=== PATIENT | male | born 1955 | race Caucasian/White ===

== ENCOUNTER 2017-02-17 06:17 | Inpatient (IN) | payer OTHER ==
[2017-01-19 10:52] VITALS: BMI 37.0
--- NOTE | 2017-01-19 11:23 | PAT Medication Instructions ---
Service Date Jan 19, 2017. Current Home Medication List Acetaminophen (Tylenol), 1,000 MG PO PRN Hydrocodone/Acetaminophen 7.5MG/325MG (Ripon 7.5MG/325MG), 1-2 TAB PO HS PRN for Pain Multivitamin (Multivitamin), 1 TAB PO QAM Warfarin Sod (Jantoven), 10 MG PO 5XWEEK Warfarin Sod (Jantoven), 11 MG PO MON/FRI [Potassium], 1 TAB PO Q2D Medication Instructions For Your Scheduled Surgery - Check with surgeon/Dr. Pryor for instructions: Warfarin Sod (Jantoven), 10 MG PO 5XWEEK Warfarin Sod (Jantoven), 11 MG PO MON/FRI - Hold the following medications the morning of surgery: Multivitamin (Multivitamin), 1 TAB PO QAM [Potassium], 1 TAB PO Q2D - Take the following medications the morning of surgery with a sip of water: Acetaminophen (Tylenol), 1,000 MG PO PRN (if needed) Hydrocodone/Acetaminophen 7.5MG/325MG (Ripon 7.5MG/325MG), 1-2 TAB PO HS PRN for Pain (okay to take up to 4 hours prior to surgery if needed) - Take the following medications as scheduled the night before surgery: Acetaminophen (Tylenol), 1,000 MG PO PRN (if needed) Hydrocodone/Acetaminophen 7.5MG/325MG (Ripon 7.5MG/325MG), 1-2 TAB PO HS PRN for Pain (if needed) If you have any questions please call us at [phone] or [phone] or [phone]
--- NOTE | 2017-01-19 12:23 | DIAGNOSTIC IMAGING REPORT ---
CHEST PREADMISSION(PA/LAT) CLINICAL HISTORY: Preoperative evaluation. COMPARISON STUDY: No previous studies for comparison. FINDINGS: Lung volumes are mildly increased. There is no pneumothorax or pleural effusion. There is no evidence of pulmonary edema. Cardiomediastinal silhouette is normal. Pulmonary vascularity is normal. IMPRESSION: 1. No acute cardiopulmonary findings. 2. Mild lung hyperinflation. Electronically signed by: Bobo Rodriguez M.D. 01/19/2017 12:21 PM Dictated Date/Time: 01/19/2017 12:21 PM
[2017-01-19 13:00] LABS: BASO % 0.4 %; BASO ABS # 0.03 K/uL (0-0.2); COMPLETE YES; EOS % 1.8 %; HEMATOCRIT 46.9 % (42-52); IG% 0.3 %; LYMPH % 24.8 %; LYMPH ABS # 1.91 K/uL (1.2-3.4); MEAN CORPUSCULAR HEMOGLOBIN 30.6 pg (25-34); MEAN CORPUSCULAR HGB CONC 33.3 g/dl (32-36); MEAN PLATELET VOLUME 10.7 fL (7.4-10.4); MONO % 6.6 %; NEUT % 66.1 %; PLATELET COUNT 184 K/uL (130-400); WHITE BLOOD COUNT 7.69 K/uL (4.8-10.8)
[2017-01-19 13:24] LABS: INR 2.6 (0.9-1.1); PARTIAL THROMBOPLASTIN RATIO 1.7
[2017-01-19 13:36] LABS: BUN/CREATININE RATIO 12.1 (10-20); POTASSIUM 4.8 mmol/L (3.5-5.1)
--- NOTE | 2017-02-16 07:09 | HISTORY & PHYSICAL EXAMINATION ---
DATE OF ADMISSION: 02/17/2017 CHIEF COMPLAINT: Bilateral hip pain, right side greater than left. 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 He has had a fairly long history of hip pain and discomfort that has gotten significantly worse over the past several months. He has been managing okay, but it got markedly worse recently. He describes mostly groin pain. He reports significant stiffness. He has difficulty putting his shoes and socks on. If he sits for any long period of time, it takes him quite a while to get going again. He was actually taking narcotics sometimes for his nighttime pain. He now would like to start having his hips fixed. The patient does have a history of a DVT back in 2004. He cannot take NSAIDs as a result. He is on chronic Coumadin. No known clotting disorder. PAST MEDICAL HISTORY: 1. Significant for DVT in the right lower extremity back in 2004 with no known clotting disorder. 2. Smoking history 1 pack for 40 years. PAST SURGICAL HISTORY: Include; 1. Ear surgery. 2. Right foot surgery. 3. Left distal biceps repair. ALLERGIES: MORPHINE. CURRENT MEDICATIONS: 1. Coumadin 10 mg on Thursday, , Thursday and Thursday and 11 mg on Thursday, Thursday and Thursday. 2. [place]. 3. Tylenol. 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 He is . One drink per week. Forty-pack a year history of smoking. FAMILY HISTORY: Noncontributory. REVIEW OF SYSTEMS: Negative for diabetes, neurologic problems, vascular problems or bleeding disorder. He does have a history of DVT. No known clotting disorder. No pulmonary embolism. He is not diabetic. PHYSICAL EXAMINATION: GENERAL: A pleasant, middle-aged male. He looks a little bit older than his stated age. Fairly large gentleman. HEENT: Benign. NECK: Supple. No lymphadenopathy. LUNGS: Clear to auscultation. HEART: Regular rate and rhythm. ABDOMEN: Soft, nontender, nondistended. EXTREMITIES: Grossly neurovascularly intact except as follows: Examination of both hips reveal the patient walks with a waddling gait. He slightly walks hunched over with flexion contractures. His leg lengths clinically appear pretty equal. He has got marked stiffness with any type of hip motion. Very minimal hip rotation. Negative straight leg raise. He is neurologically intact. He does have some chronic stasis changes distally but no signs of impending ulceration. X-RAYS: X-rays of both hips revealed advanced bilateral hip DJD, right side is a bit worse than left. It has got Cam impingement. Good bone density. 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 Symptoms have gotten markedly worse and he cannot take NSAIDs. He would like to have his hips fixed. PLAN: We are going to take him to the operating room and do a right total hip replacement. The risks and benefits of the procedure were explained to the patient including but not limited to DVT, PE, , infection, neurological, neurovascular, bleeding problems, pain, limited range of motion, stiffness, failure to relieve symptoms, incomplete relief of symptoms, need for further surgery in the future, fracture, leg length inequality, nerve palsy, dislocation, etc. The patient understands and desires to proceed. Informed consent was obtained. We did talk about the increased risk of blood clot due to his history. We will use Coumadin postoperatively. He will need to stop 5 days preop. We will likely start him on Lovenox 24 hours postoperatively until he is therapeutic on his Coumadin. We will need a stat PT and INR on the morning of surgery. We will need to stop his Coumadin 5 days preop. He may need a smoking patch in the hospital. He is going to be discharged to home I believe with advanced home health program.
[~2017-02-17] VITALS: Ht 185.4 cm; Wt 127.6 kg
[2017-02-17] VITALS (9 sets, daily range): BP systolic 113–154; BP diastolic 68–84; PULSE 59–83; TEMP 36.6–37.1; O2SAT 92–99; Ht 185.4 cm; Wt 127.6 kg
[~2017-02-17 06:17] MED LIST: ACET-1256 PO; ACETAMINOPHEN 500 MG TAB PO SCH; CEFAZOLIN 3000 MG/65 ML D5W 65 ML IV SCH; FAMOTIDINE 20 MG TAB PO SCH; GABAPENTIN 300 MG CAP PO SCH; HYDR-3983 PO; LACTATED RINGER'S 1000ML 1,000 ML IV SCH; LACTATED RINGER'S 1000ML 500 ML IV ONE; METOCLOPRAMIDE HCL 10 MG TAB PO SCH; MULT-506 PO; POTASSIUM PO; SCOPOLAMINE 1.5 MG TDSY TD SCH; WARF10TA4 PO; WARF1TAB6 PO
[2017-02-17] MEDS ORDERED: BUPIVACAINE 0.5 % 5 MG/1 ML PF 10ML VIAL ONE (06:24)
[2017-02-17] MEDS ORDERED: TRANEXAMIC ACID INJ 1,000 MG in SODIUM CHLORIDE 0.9% 100ML 100 ML IV SCH (06:30)
--- NOTE | 2017-02-17 06:52 | History & Physical Bridge Note ---
H&P Re-Evaluation Bridge Note: I have examined the patient, reviewed the History & Physical and in the interval since the performance of the History & Physical I have noted the following changes of clinical significance: No changes noted
[2017-02-17] MEDS ORDERED: MIDAZOLAM HCL 1 MG/ML 2ML VIAL ONE (07:19)
[2017-02-17] MEDS ORDERED: FENTANYL CITRATE INJ 50 MCG/1 ML 2 ML VIAL ONE ×3 (07:20→11:09)
[2017-02-17] MEDS ORDERED: PROPOFOL IV EMULSION 10 MG/ML 20 ML VIAL IV ONE (07:31)
[2017-02-17] MEDS ORDERED: LIDOCAINE HCL 2% 2 ML VIAL (20MG/ML) ONE (07:31)
[2017-02-17] MEDS ORDERED: ONDANSETRON INJ 2 MG/ML 2 ML VIAL ONE (07:31)
[2017-02-17 08:01] LABS: INR 1.1 (0.9-1.1); PARTIAL THROMBOPLASTIN RATIO 1.1
[2017-02-17] MEDS ORDERED: MORPHINE SULFATE PF 2MG/2ML SYR ONE (08:01)
[2017-02-17] MEDS ORDERED: ROCURONIUM BROMIDE 10 MG/ML 5 ML VIAL IV ONE (08:32)
[2017-02-17] MEDS ORDERED: BUPIVACAINE/EPINEPHRINE 0.5% MPF 1:200,000 30 ML VIAL ONE (08:48)
[2017-02-17] MEDS ORDERED: BACITRACIN 50000 UNIT VIAL ONE (08:48)
[2017-02-17] MEDS ORDERED: HYDROmorphone INJ 2 MG/ML SYR/VIAL ONE (09:26)
[2017-02-17] MEDS ORDERED: HYDROmorphone INJ 1 MG/ML SYR IV PRN (09:30)
[2017-02-17] MEDS ORDERED: LABETALOL HCL IV 5 MG/ML 20ML IV PRN (09:30)
[2017-02-17] MEDS ORDERED: PHENYLEPHRINE HCL INJ 10 MG/ML VIAL ONE (09:30)
[2017-02-17] MEDS ORDERED: EpHEDrine SULFATE INJ 50 MG/ML AMP IV PRN (09:30)
[2017-02-17] MEDS ORDERED: MEPERIDINE HCL 25 MG/ML CARP IV PRN (09:30)
[2017-02-17] MEDS ORDERED: ONDANSETRON INJ 2 MG/ML 2 ML VIAL IV PRN ×2 (09:30→11:00)
[2017-02-17] MEDS ORDERED: ATROPINE SULFATE 0.1 MG/ML 5ML SYR IV PRN (09:30)
[2017-02-17] MEDS ORDERED: DEXAMETHASONE SOD INJ 4 MG/ML VIAL ONE (09:36)
[2017-02-17] MEDS ORDERED: METOCLOPRAMIDE HCL INJ 5 MG/ML 2 ML VIAL ONE (09:37)
[2017-02-17] MEDS ORDERED: WATER, STERILE FOR INJ 10 ML VIAL ONE (09:39)
[2017-02-17] MEDS ORDERED: GLYCOPYRROLATE INJ 0.2 MG/ML VIAL ONE (10:31)
[2017-02-17] MEDS ORDERED: NEOSTIGMINE METHYLSULFATE 5 MG/5 ML SYR ONE (10:31)
[2017-02-17] MEDS ORDERED: BISACODYL 10 MG SUPP PR PRN (11:00)
[2017-02-17] MEDS ORDERED: ZOLPIDEM TARTRATE 5 MG TAB PO PRN (11:00)
[2017-02-17] MEDS ORDERED: TAMSULOSIN HCL 0.4 MG CAP PO PRN (11:00)
[2017-02-17] MEDS ORDERED: SILVER SULFADIAZINE 1% CR 50 GM JAR EXT PRN (11:00)
[2017-02-17] MEDS ORDERED: HYDROmorphone INJ 0.5 MG/0.5 ML SYR IV PRN (11:00)
[2017-02-17] MEDS ORDERED: METOCLOPRAMIDE HCL INJ 5 MG/ML 2 ML VIAL IV PRN (11:00)
[2017-02-17] MEDS ORDERED: DiphenhydrAMINE HCL 50 MG/ML VIAL IV PRN (11:00)
[2017-02-17] MEDS ORDERED: MAGNESIUM HYDROXIDE SUSP 30 ML UDC PO PRN (11:00)
[2017-02-17] MEDS ORDERED: ALUMINUM/MAGNESIUM/SIMETH (MAALOX MAX) 30 ML UDC PO PRN (11:00)
[2017-02-17] MEDS: FENTANYL CITRATE INJ 50 MCG/1 ML 2 ML VIAL IV PRN ×6 (11:13→11:45)
--- NOTE | 2017-02-17 11:50 | Anesthesiology Progress Note ---
Anesthesia Post Op Note Date & Time Feb 17, 2017 at 11:50 Vital Signs Pain Intensity: 3 Vital Signs Past 12 Hours Date Time Temp Pulse Resp B/P (MAP) Pulse Ox O2 Delivery O2 Flow Rate FiO2 02/17/17 11:36 136/81 02/17/17 11:33 82 15 100 02/17/17 11:33 82 15 02/17/17 11:32 130/90 02/17/17 11:28 86 16 100 02/17/17 11:28 86 16 02/17/17 11:27 139/82 02/17/17 11:23 84 20 100 02/17/17 11:23 84 20 02/17/17 11:21 133/80 02/17/17 11:18 83 13 100 02/17/17 11:18 83 13 02/17/17 11:16 139/78 02/17/17 11:13 84 11 100 02/17/17 11:13 85 11 02/17/17 11:11 152/85 02/17/17 11:08 87 19 02/17/17 11:08 87 19 100 02/17/17 11:06 144/80 02/17/17 11:03 87 18 100 02/17/17 11:03 87 18 02/17/17 11:01 165/86 02/17/17 10:59 133/82 02/17/17 10:58 36.4 90 20 133/82 98 Oxymask 13 02/17/17 10:58 93 34 99 02/17/17 10:58 93 34 02/17/17 06:47 36.8 59 18 122/68 96 Room Air Notes Mental Status: alert / awake / arousable, participated in evaluation Pt Amnestic to Procedure: Yes Nausea / Vomiting: adequately controlled Pain: adequately controlled Airway Patency, RR, SpO2: stable & adequate BP & HR: stable & adequate Hydration State: stable & adequate Anesthetic Complications: no major complications apparent
--- NOTE | 2017-02-17 11:51 | DIAGNOSTIC IMAGING REPORT ---
SINGLE VIEW PELVIS; 2 VIEWS RIGHT HIP CLINICAL HISTORY: Postoperative examination. FINDINGS: An AP portable view of the hips and pelvis with AP and crosstable lateral views of the right hip are obtained. A bipolar right hip arthroplasty is in near-anatomic alignment. At least 2 cortical lag screws transfix the acetabular cup. No acute fracture is identified. There are expected postoperative changes overlying the right hip including skin clips, subcutaneous gas, and soft tissue swelling. IMPRESSION: Expected postoperative findings status post right hip arthroplasty. No acute fracture is seen. Electronically signed by: Chu Garcia M.D. 02/17/2017 11:49 AM Dictated Date/Time: 02/17/2017 11:47 AM
--- NOTE | 2017-02-17 12:38 | OPERATIVE REPORT ---
DATE OF OPERATION: 02/17/2017 PREOPERATIVE DIAGNOSIS: Right hip degenerative joint disease. POSTOPERATIVE DIAGNOSIS: Same. PROCEDURE PERFORMED: Right uncemented ceramic on highly cross-linked polyethylene total hip arthroplasty. SURGEON: Urban Wall MD COMPUTERIZED MILL RECORDER: Corby Ybarra PA-C. COMPLICATIONS: None. ESTIMATED BLOOD LOSS: 300 mL. FLUID REPLACEMENT: 1100 mL crystalloid fluid replacement. ANESTHESIA: General. SPECIMENS: Right femoral head sent for pathology. OPERATIVE INDICATIONS: The patient is a 61-year-old gentleman who has had a long history of bilateral hip pain and discomfort that has gotten significantly worse over the past several months to the point where he is having trouble getting around. He has been through extensive conservative treatment. X-rays reveal advanced bilateral hip DJD. He elected to proceed with right total hip arthroplasty. OPERATIVE FINDINGS: Operative findings revealed advanced right hip DJD. He had grade 4 bone disease of the femoral head and acetabulum. He had significant osteophytes around the femoral head as well as the anterior aspect of the acetabulum. Moderate size joint effusion. Very stiff hip. OPERATIVE IMPLANTS: Operative implants consisted of: 1. Biomet G7 size 58-mm acetabular shell. 2. An apex hole eliminator. 3. A 6.5 cancellous acetabular screws, 1 at 35 mm length and 1 at 25 mm in length. 4. A highly cross-linked polyethylene liner with a 58 mm outer diameter, 36 mm inner diameter with a abraham placed inferior and posterior. 5. A DePuy size 13.5 large stature standard offset AML femoral stem. 6. A +8.5/36 mm ceramic articular ball. OPERATIVE PROCEDURE: The patient taken to the operating room, identified and placed on the operating table in supine position. All contact areas were appropriately padded. IV antibiotics were provided by anesthesia team. A general anesthetic was implemented as the patient refused a spinal anesthetic. The patient was then placed in the left lateral decubitus position. An axillary roll was placed. Stlberg hip positioner was used for positioning. The right hip and leg were then prepped and draped in the usual sterile fashion. A posterolateral approach to the right hip was then performed through a curvilinear incision centered over the greater trochanter. Sharp dissection was carried out through the subcutaneous tissues down to the level of the IT band and gluteal fascia. The IT band and gluteal fascia were then incised longitudinally in line with skin incision. The underlying greater trochanteric bursa was excised. The piriformis and external rotators were then carefully tagged and taken off the posterior aspect of the hip. Great care was taken throughout the procedure to protect the sciatic nerve at all times. Posterior capsulotomy was then performed leaving a large flap for later repair. Hip was internally rotated and dislocated. Femoral neck osteotomy cut was made with the final cut 14 mm above the lesser trochanter. Femoral head was removed and sent for pathology. The femur was retracted anteriorly. Attention was then drawn to the acetabulum. The acetabulum labrum was excised. The pulvinar fat was excised. Sequential reaming of the acetabulum was then performed beginning with a size 51 and progressing up to 57. A 58 mm Biomet G7 acetabular shell was then placed in about 40 degrees of lateral opening and 20 degrees of anteversion. It was fixed with two 6.5 cancellous acetabular screws. A large anterior osteophyte was removed. A trial liner was placed. Attention was then drawn to the femur. The proximal femur was entered with cookie cutter followed by canal finder and lateralizing reamer. Sequential reaming of the femur was then performed beginning with a size 10 and progressing up to a 13. We got pretty good chatter at 13. I then broached beginning with a size 10.5 small and progressing up to 13.5 large broach. We got excellent metaphyseal fit. Calcar reamer was used to smoothen off the calcar. We then trialed the hip. With a +5 head the soft tissue seemed to be a bit lax. With the +8.5 soft tissue tension seemed appropriate. Hip was fully stable in full extension and external rotation, flexion to 90 degrees, internal rotation to about 50 degrees. I did elect to place a abraham inferior and posterior to maximize stability in flexion. We elected to use these implants. All trial implants were removed. An apex hole eliminator was placed. A highly cross-linked polyethylene liner with a abraham placed inferior and posterior was placed. A 13.5 large stature AML femoral stem was impacted in position. A +8.5/36 mm ceramic articular ball was placed. Hip was located and once again found to be stable. Attention was then drawn toward closing. The wound was irrigated with copious amounts of pulsatile lavage solution. I did inject locally with 60 mL of 0.5% Marcaine with epinephrine. The posterior capsule and external rotators were repaired through drill holes in the posterior trochanter with #2 Ti-Cron suture. The IT band and gluteal fascia were then closed with #1 PDS suture in running fashion. The subcutaneous tissues were then closed in 2 layers with the deep layer #1 Vicryl suture and subcutaneous tissues with 2-0 Dexon suture in a buried interrupted fashion. The skin was closed with skin jessica. Leg was then cleaned and dried and a sterile dressing of Xeroform, 4 x 4, sterile ABD pad and foam tape was applied. The patient then brought out of general anesthesia and transferred to the recovery room in stable condition. The patient tolerated the procedure with no complications. All needle and sponge counts were correct at the end of the operation. I attest to the content of the Intraoperative Record and any orders documented therein. Any exception s are noted below.
--- NOTE | 2017-02-17 12:54 | [facility] Post Operative Brief Note ---
Immediate Operative Summary Operative Date Feb 17, 2017. Pre-Operative Diagnosis Right hip degenerative joint disease Post-Operative Diagnosis Right hip degenerative joint disease Procedure(s) Performed Right total hip arthroplasty--Uncemented Surgeon Dr. Wall Payable Manager Surgeon(s) Corby Ybarra PA-C Estimated Blood Loss 300 ml Findings Right Hip DJD Fluids (cc crystalloids) 1000 cc Specimens A: Right femoral head Drains None Anesthesia General Complication(s) None Disposition Recovery Room / PACU
[2017-02-17] MEDS: D5W AND 1/2NSS + 20MEQ KCL 1,000 ML IV SCH ×2 (13:36→20:53)
[2017-02-17] MEDS: ACETAMINOPHEN 500 MG TAB PO SCH ×2 (14:33→20:57)
[2017-02-17] MEDS: FERROUS GLUCONATE 324 MG TAB PO SCH ×2 (14:33→18:25)
[2017-02-17] MEDS: KETOROLAC TROMETHAMINE 30 MG/ML VIAL IV. SCH ×2 (15:20→20:55)
[2017-02-17] MEDS ORDERED: WARFARIN SOD 6 MG TAB PO SCH (16:00)
[2017-02-17] MEDS: CEFAZOLIN IV 2,000 MG in DEXTROSE 5% 50ML 50 ML IV SCH (18:25)
[2017-02-17] MEDS: OXYCODONE HCL IR 5 MG TAB (IMMEDIATE RELEASE) PO PRN (18:28)
[2017-02-17] MEDS: TAPENTADOL ER 50 MG TABCR PO SCH (20:54)
[2017-02-17] MEDS: DOCUSATE SODIUM 100 MG CAP PO SCH (20:54)
[2017-02-17] MEDS ORDERED: SENNA 8.6 MG TAB PO SCH (21:00)
[2017-02-17] MEDS ORDERED: HYDR-3983 PO (21:59)
--- NOTE | 2017-02-17 22:02 | Discharge Instructions ---
Discharge Instructions Date of Service Feb 17, 2017. Admission Reason for Admission: Right Hip Degenerative Joint Disease Discharge Discharge Diagnosis / Problem: Right Hip Replacement Discharge Goals Goal(s): Decrease discomfort, Improve function, Increase independence, Improve disease control, Improve nutritional status Activity Recommendations Activity Limitations: per Instructions/Follow-up section (Total Hip Precautions !!!!!) Weightbearing Status: Right weightbearing . Instructions / Follow-Up Instructions / Follow-Up ACTIVITY RECOMMENDATIONS: Physical Therapy: * Aggressive physical therapy is not usually needed. You will learn to take care of yourself safely and walk. * Follow the "Hip Precautions Instructions." * In some cases, the addiction social worker at the hospital will arrange to have a therapist come to your house for the first couple of weeks to help you learn these skills. * You need to practice on your own or with the help of a family member as needed. * When you learn these skills, most of the therapy can be done on your own. Home Exercise: * You were shown a series of exercises in the hospital. Do these exercises three to four times each day including the exercises you were shown in physical therapy. Walking: * Get up and walk several times each day. For the first four weeks, try not to stand or walk for more than one hour at a time. If you do stand or walk for more than one hour, you will not hurt anything, but your leg will likely swell. * As you feel comfortable, you may change from the walker or crutches to a cane and then to independent walking. MEDICATIONS: New Medicine: * You will likely be taking one or more of these medicines: 1. Percocet - Take, as directed, when you need it, every four to six hours to control your pain. 2. Coumadin - Thins your blood to lessen the chance of forming a blood clot. The dose of this is different for each person and is based on your blood tests that are done every Thursday and . * The most common side effects of pain medicine and iron are nausea and constipation. If nausea or constipation is too much of a problem or if you have any questions about your new medicines or doses, call [facility] at . We will try to help you manage these issues. VERY IMPORTANT TO READ AND REVIEW" Pain: * The immediate post-operative period after hip replacement surgery is often quite painful. * You are given a prescription for pain medicine. You should take it, as directed, when you need it, especially before physical therapy and before going to bed. Pain that interferes with sleep is very common and can last several months. * You will likely need pain medicine for the first two to four weeks. It will not stop all of the pain. The pain will lessen and as you feel better, you may change to milder pain medicine such as Tylenol. * The most common side effects of pain medicine are nausea and constipation, so don't take more than you need. SPECIAL CARE INSTRUCTIONS: TEDs/Elastic Stockings: * The white elastic stockings help limit swelling and prevent blood clots from forming in your legs. The more you wear them, the more they work. * Wear them for six weeks. Prevention of Infection: * Take antibiotics one hour before any dental cleaning, dental work, urological procedure, gastrointestinal procedure or any invasive surgery in order to prevent your new joint from getting infected. * You may get the antibiotics from the doctor performing the procedure or you may call our office at before and we will call in a prescription to the pharmacy of your choice. Things to Watch For: * Drainage from the incision site that occurs more than one week after your surgery. * Severely increased leg pain or swelling. * Increased redness at the incision site. * Fever above 102 degrees Fahrenheit. * Unusual chest pain or shortness of breath. * Unusual pain or burning with urination. Call [facility] at with any of the above problems or if you have any questions about your medicines or recovery. FOLLOW UP VISIT: Make an appointment to see your doctor for approximately two weeks after surgery for a progress check and staple removal by calling the office at . Current Hospital Diet Patient's current hospital diet: Regular Diet Discharge Diet Recommended Diet: Regular Diet Procedures Procedures Performed: Right total hip arthroplasty--Uncemented Pending Studies Studies pending at discharge: no Medical Emergencies . Who to Call and When: Medical Emergencies: If at any time you feel your situation is an emergency, please call [phone] immediately. . Non-Emergent Contact Non-Emergency issues call your: Surgeon . "Provider Documentation" section prepared by Urban Wall. . VTE Core Measure Inpt VTE Proph given/why not?: Warfarin (Coumadin), Francesca Anguiano, SCD's
--- NOTE | 2017-02-17 22:57 | PROGRESS NOTE ---
DATE: 02/17/2017 SUBJECTIVE: A 61-year-old gentleman postop from a right hip replacement. He is doing well. Really not much pain. He had general anesthetic. He is already talking about having his other hip replaced. OBJECTIVE: VITAL SIGNS: Temperature 36.6. Vital signs stable. PHYSICAL EXAMINATION: GENERAL: This is a pleasant, middle-aged male. He is sitting up in bed, looks pretty comfortable. LUNGS: Clear to auscultation. HEART: Regular rate and rhythm. ABDOMEN: Soft, nontender, nondistended. EXTREMITIES: Grossly neurovascularly intact except as follows. Examination of the right hip and leg reveals the dressing to be clean, dry and intact. Hip is located. He can dorsiflex and plantarflex his foot appropriately. He is neurologically intact. ASSESSMENT: A 61-year-old gentleman postop from a right hip replacement, doing well. His pain is controlled. He is neurologically intact. PLAN: 1. DVT prophylaxis including thigh high TEDs, SCDs, and Coumadin. We will bolus him this evening with a goal of giving him bolus dose today and tomorrow and get him back on his regular dose on discharge. 2. PT, OT. Weight bear as tolerated. Right total hip protocol. 3. Pain control, doing pretty well with current pain regimen. Pain is remarkably well controlled for general anesthesia 4. IV antibiotics x24 hours. 5. Disposition. Plan to discharge to home with some home health once adequately recovered.
[2017-02-18] MEDS: CEFAZOLIN IV 2,000 MG in DEXTROSE 5% 50ML 50 ML IV SCH (00:44)
[2017-02-18] MEDS: D5W AND 1/2NSS + 20MEQ KCL 1,000 ML IV SCH ×2 (03:30→09:56)
[2017-02-18] MEDS: KETOROLAC TROMETHAMINE 30 MG/ML VIAL IV. SCH ×2 (03:30→09:57)
[2017-02-18 03:40] VITALS: BP 121/73; PULSE 54; TEMP 37.2; O2SAT 98
[2017-02-18] MEDS: ACETAMINOPHEN 500 MG TAB PO SCH ×2 (05:31→13:29)
[2017-02-18 06:45] LABS: BASO % 0.1 %; BASO ABS # 0.01 K/uL (0-0.2); COMPLETE YES; EOS % 0.5 %; HEMATOCRIT 35.6 % (42-52); IG% 0.3 %; LYMPH % 14.2 %; LYMPH ABS # 1.23 K/uL (1.2-3.4); MEAN CELL VOLUME 91.5 fL (80-100); MEAN CORPUSCULAR HEMOGLOBIN 31.1 pg (25-34); MEAN PLATELET VOLUME 10.1 fL (7.4-10.4); MONO % 12.5 %; NEUT % 72.4 %; PLATELET COUNT 127 K/uL (130-400); RED BLOOD COUNT 3.89 M/uL (4.7-6.1); WHITE BLOOD COUNT 8.65 K/uL (4.8-10.8)
[2017-02-18 06:52] LABS: INR 1.2 (0.9-1.1); PROTHROMBIN TIME (PATIENT) 13.3 SECONDS (9.0-12.0)
[2017-02-18 07:17] LABS: BUN/CREATININE RATIO 13.2 (10-20); CALCIUM 8.5 mg/dl (8.5-10.1); CREATININE 0.91 mg/dl (0.60-1.40); POTASSIUM 4.3 mmol/L (3.5-5.1)
--- NOTE | 2017-02-18 07:33 | Orthopedic Progress Note ---
Orthopedic Progress Note Date of Service Feb 18, 2017. Subjective Additional Notes: POD #1 Right NEREIDA. Doing well. Pain controlled. NO other complaints. Objective N/V intact, hip located, dressing C/D/I, A&O x3, toes mobile Date Time Temp Pulse Resp B/P (MAP) Pulse Ox O2 Delivery O2 Flow Rate FiO2 02/18/17 03:40 37.2 54 16 121/73 (89) 98 CPAP 02/18/17 00:15 Room Air 02/17/17 23:01 37.0 60 16 119/72 (88) 98 Room Air 02/17/17 19:01 36.6 68 18 113/70 (84) 99 Nasal Cannula 2.0 02/17/17 15:30 99 Nasal Cannula 2.0 02/17/17 15:22 37.1 66 16 129/81 (97) 99 Nasal Cannula 2.0 02/17/17 14:25 36.8 76 18 130/84 (99) 99 Oxymask 2.0 02/17/17 13:23 37.0 79 18 124/78 (93) 98 Nasal Cannula 2.0 02/17/17 12:45 37.0 75 19 123/77 (92) 92 Oxymask 2.0 02/17/17 12:15 Oxymask 2.0 02/17/17 12:15 36.6 83 16 154/71 (98) 96 Oxymask 2.0 02/17/17 12:15 Oxymask 2.0 02/17/17 11:57 82 14 94 02/17/17 11:57 83 14 02/17/17 11:56 121/75 02/17/17 11:52 81 12 02/17/17 11:52 81 12 94 02/17/17 11:51 141/84 02/17/17 11:50 36.6 83 16 141/84 (82) 94 Oxymask 2 02/17/17 11:47 82 12 02/17/17 11:47 82 12 93 02/17/17 11:46 132/96 02/17/17 11:42 80 13 100 02/17/17 11:42 80 13 02/17/17 11:41 116/74 02/17/17 11:37 81 13 100 02/17/17 11:37 81 13 02/17/17 11:36 136/81 02/17/17 11:33 82 15 100 02/17/17 11:33 82 15 02/17/17 11:32 130/90 02/17/17 11:28 86 16 100 02/17/17 11:28 86 16 02/17/17 11:27 139/82 02/17/17 11:23 84 20 100 02/17/17 11:23 84 20 02/17/17 11:21 133/80 02/17/17 11:18 83 13 100 02/17/17 11:18 83 13 02/17/17 11:16 139/78 02/17/17 11:13 84 11 100 02/17/17 11:13 85 11 02/17/17 11:11 152/85 02/17/17 11:08 87 19 02/17/17 11:08 87 19 100 02/17/17 11:06 144/80 02/17/17 11:03 87 18 100 02/17/17 11:03 87 18 02/17/17 11:01 165/86 02/17/17 10:59 133/82 02/17/17 10:58 36.4 90 20 133/82 98 Oxymask 13 02/17/17 10:58 93 34 99 02/17/17 10:58 93 34 Laboratory Results 24 Hours: Test 02/18/17 06:34 White Blood Count 8.65 K/uL Red Blood Count 3.89 M/uL Hemoglobin 12.1 g/dL Hematocrit 35.6 % Mean Corpuscular Volume 91.5 fL Mean Corpuscular Hemoglobin 31.1 pg Mean Corpuscular Hemoglobin Concent 34.0 g/dl Platelet Count 127 K/uL Mean Platelet Volume 10.1 fL Neutrophils (%) (Auto) 72.4 % Lymphocytes (%) (Auto) 14.2 % Monocytes (%) (Auto) 12.5 % Eosinophils (%) (Auto) 0.5 % Basophils (%) (Auto) 0.1 % Neutrophils # (Auto) 6.26 K/uL Lymphocytes # (Auto) 1.23 K/uL Monocytes # (Auto) 1.08 K/uL Eosinophils # (Auto) 0.04 K/uL Basophils # (Auto) 0.01 K/uL Prothromb Time International Ratio 1.2 Prothrombin Time 13.3 SECONDS Assessment & Plan Assessment: POD #1 Right NEREIDA Discharge Planning Discharge Planning: home with home health (He's hoping to be discharged today. We will see how he does with PT) Pain Management: other (continue current pain management ) DVT Prophylaxis: TEDs, SCDs, Coumadin Therapy: Physical Therapy, Occupational Therapy Discharge Planning Notes: Total hip precautions Raúl was seen examined today by Dr. Wall as well. We'll plan to discharge him home today with home health.
[2017-02-18] MEDS: FERROUS GLUCONATE 324 MG TAB PO SCH ×2 (08:39→12:27)
[2017-02-18] MEDS: DOCUSATE SODIUM 100 MG CAP PO SCH (08:39)
[2017-02-18] MEDS: TAPENTADOL ER 50 MG TABCR PO SCH (08:45)
[2017-02-18] MEDS ORDERED: NICOTINE 14 MG/24 HR TDSY TD SCH (09:00)
[2017-02-18] MEDS ORDERED: MULTIVITAMIN TAB PO SCH ×2 (09:00)
[2017-02-18] MEDS ORDERED: PANTOprazole SOD 40 MG TAB PO SCH (09:00)
[2017-02-18 09:21] VITALS: BP 115/72; PULSE 58; TEMP 37; O2SAT 100
[2017-02-18] MEDS ORDERED: NURSING VERBAL MED ORDER ONE (09:30)
[2017-02-18] MEDS: OXYCODONE HCL IR 5 MG TAB (IMMEDIATE RELEASE) PO PRN (10:04)
--- NOTE | 2017-02-18 10:49 | Anesthesiology Progress Note ---
Anesthesia Post Op Note Date & Time Feb 18, 2017 at 10:48 Vital Signs Vital Signs Past 12 Hours Date Time Temp Pulse Resp B/P (MAP) Pulse Ox O2 Delivery O2 Flow Rate FiO2 02/18/17 09:21 37.0 58 18 115/72 (86) 100 Room Air 02/18/17 07:40 Room Air 02/18/17 03:40 37.2 54 16 121/73 (89) 98 CPAP 02/18/17 00:15 Room Air 02/17/17 23:01 37.0 60 16 119/72 (88) 98 Room Air Notes Mental Status: alert / awake / arousable, participated in evaluation Pt Amnestic to Procedure: Yes Nausea / Vomiting: adequately controlled Pain: adequately controlled Airway Patency, RR, SpO2: stable & adequate BP & HR: stable & adequate Hydration State: stable & adequate Anesthetic Complications: no major complications apparent
[2017-02-18] MEDS ORDERED: ENOXAPARIN 40 MG/0.4 ML SYR SQ SCH (11:00)
[2017-02-18 12:36] VITALS: BP 128/76; PULSE 56; TEMP 36.7
[2017-02-18 12:58] VITALS: BP 128/76; PULSE 56; TEMP 36.7; O2SAT 100
[2017-02-18] MEDS ORDERED: WARFARIN SOD 5 MG TAB PO ONE (16:00)
== END 2017-02-18 14:15 | disposition home health service (06) | DRG 470 ==
LOC: C.ACU 06:17 → C.3E 06:40 → ENRESERV 11:30
PROVIDERS: ADMIT Orthopaedic Surgery Sports Medicine; ATTEND Orthopaedic Surgery Sports Medicine
PROC: 0SR904A Replacement of Right Hip Joint with Ceramic on Polyethylene Synthetic Substitute, Uncemented, Open Approach (ICD-10-PCS; principal; 2017-02-17 09:00)
DX: M16.11 Unilateral primary osteoarthritis, right hip (principal); Z86.718 Personal history of other venous thrombosis and embolism; Z79.01 Long term (current) use of anticoagulants; F17.200 Nicotine dependence, unspecified, uncomplicated

== ENCOUNTER 2017-06-04 05:23 | Inpatient (IN) | payer OTHER ==
[2017-05-07 13:04] VITALS: BMI 36.0
--- NOTE | 2017-05-30 22:58 | HISTORY & PHYSICAL EXAMINATION ---
DATE OF ADMISSION: 06/04/2017 CHIEF COMPLAINT: Left hip pain. 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 He has a long history of hip problems. He is very happy with his right hip. He continues to be more and more debilitated by his left hip. He is actually called in and thought he broke his hip at one point due to the pain. He describes mostly groin and thigh pain. He would like to proceed with left hip replacement. The patient does have a history of a DVT in 2004 and cannot take NSAIDs due to his chronic Coumadin use. PAST MEDICAL HISTORY: 1. DVT in the right lower extremity in 2004 without any known clotting disorder. 2. A [id number] history of smoking. PAST SURGICAL HISTORY: Include: 1. Ear surgery. 2. Right foot surgery. 3. Left distal biceps repair. 4. Right total hip replacement done 02/17/2017. ALLERGIES: MORPHINE. CURRENT MEDICATIONS: Include: 1. Coumadin 10 mg on Thursday, , Thursday and Thursday and 11 mg on Thursday, Thursday and Thursday. 2. Tylenol. SOCIAL HISTORY: A 61-year-old male. 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 He is . He does have a girlfriend. A [id number] history of smoking. FAMILY HISTORY: Negative for diabetes, heart disease or blood clots. REVIEW OF SYSTEMS: Significant for this one blood clot. No known clotting disorder. No history of PE. No chest pain or shortness of breath. No history of rheumatoid disease. No neurologic or vascular problems. PHYSICAL EXAMINATION: GENERAL: Reveals a pleasant, large, middle-aged male. HEENT: Benign. NECK: Supple. No lymphadenopathy. LUNGS: Clear to auscultation. HEART: Has a regular rate and rhythm. ABDOMEN: Soft, nontender, nondistended. EXTREMITIES: Grossly neurovascularly intact except as follows: Examination of the left hip reveals a very stiff hip. Walks with his foot externally rotated. He is about a 0.5 cm to 1 cm short on the left side compared to the right. He has pain and stiffness with any type of hip motion. Examination of the right hip reveals incision healed nicely. Minimal pain with hip motion. He is neurologically intact. X-RAYS: X-rays of the left hip were reviewed. It shows advanced left hip DJD. He has complete loss of his joint space. He has a large cyst in the femoral head as well as a large medial osteophyte. ASSESSMENT: A 61-year-old gentleman 3 months out from a right hip replacement with advanced left hip degenerative joint disease. His right hip is doing well and he would like to proceed with left hip replacement. PLAN: We will take him to the operating room and do a left total hip replacement. The risks and benefits of this procedure were explained to the patient including but not limited to DVT, PE, , infection, neurological injury, vascular injury, bleeding problem, pain, limited range of motion, stiffness, failure to relieve his symptoms, incomplete relief of his symptoms, need for further surgery in the future, fracture, leg length inequality, nerve palsy, etc. The patient understands and desires to proceed. Informed consent was obtained. He is on Coumadin. He will stop that 5 days preoperatively. We will get a stat PT and INR the morning of surgery. We will start him on Coumadin in the evening of surgery. He does have a smoking history and he likely need a nicotine patch. He is planning to be discharged to home with some home health and his girlfriend's assistance.
[~2017-06-04] VITALS: Ht 185.4 cm; Wt 125.9 kg
[2017-06-04] VITALS (9 sets, daily range): BP systolic 100–173; BP diastolic 61–87; PULSE 63–81; TEMP 36.4–37.5; O2SAT 96–99; Ht 185.4 cm; Wt 125.9 kg
[~2017-06-04 05:23] MED LIST changes: -ACETAMINOPHEN 500 MG TAB PO SCH; -CEFAZOLIN 3000 MG/65 ML D5W 65 ML IV SCH; -FAMOTIDINE 20 MG TAB PO SCH; -GABAPENTIN 300 MG CAP PO SCH; -LACTATED RINGER'S 1000ML 1,000 ML IV SCH; -LACTATED RINGER'S 1000ML 500 ML IV ONE; -METOCLOPRAMIDE HCL 10 MG TAB PO SCH; +OMEG10007 PO; -POTASSIUM PO; -SCOPOLAMINE 1.5 MG TDSY TD SCH
[2017-06-04] MEDS ORDERED: LACTATED RINGER'S 1000ML 1,000 ML IV SCH (06:00)
[2017-06-04] MEDS ORDERED: LACTATED RINGER'S 1000ML IV SCH (06:00)
[2017-06-04] MEDS ORDERED: FAMOTIDINE 20 MG TAB PO SCH (06:00)
[2017-06-04] MEDS ORDERED: METOCLOPRAMIDE HCL 10 MG TAB PO SCH (06:00)
[2017-06-04] MEDS ORDERED: GABAPENTIN 300 MG CAP PO SCH (06:00)
[2017-06-04] MEDS ORDERED: LACTATED RINGER'S 1000ML 500 ML IV SCH (06:00)
[2017-06-04] MEDS ORDERED: CEFAZOLIN 3000MG IV PUSH 15 ML IV SCH (06:00)
[2017-06-04] MEDS ORDERED: SCOPOLAMINE 1.5 MG TDSY TD SCH (06:00)
[2017-06-04] MEDS ORDERED: ACETAMINOPHEN 500 MG TAB PO SCH (06:00)
[2017-06-04 06:08] LABS: PTT PATIENT 26.8 SECONDS (21.0-31.0)
[2017-06-04] MEDS ORDERED: BUPIVACAINE 0.5 % 5 MG/1 ML PF 10ML VIAL ONE (06:24)
[2017-06-04] MEDS ORDERED: MORPHINE SULFATE 1MG/1ML 30ML VIAL IV ONE (06:40)
[2017-06-04] MEDS ORDERED: MIDAZOLAM HCL 1 MG/ML 2ML VIAL ONE (06:40)
[2017-06-04] MEDS ORDERED: ONDANSETRON INJ 2 MG/ML 2 ML VIAL ONE (06:40)
[2017-06-04] MEDS ORDERED: BUPIVACAINE/EPINEPHRINE 0.5% MPF 1:200,000 30 ML VIAL ONE (06:50)
[2017-06-04] MEDS ORDERED: BACITRACIN 50000 UNIT VIAL ONE (06:50)
[2017-06-04] MEDS ORDERED: FENTANYL CITRATE INJ 50 MCG/1 ML 2 ML VIAL ONE ×4 (06:58→09:25)
[2017-06-04] MEDS ORDERED: NURSING VERBAL MED ORDER ONE (07:30)
[2017-06-04] MEDS ORDERED: HYDROmorphone INJ 2 MG/ML SYR/VIAL ONE (07:31)
[2017-06-04] MEDS ORDERED: ROCURONIUM BROMIDE 10 MG/ML 5 ML VIAL IV ONE (07:36)
[2017-06-04] MEDS ORDERED: DEXAMETHASONE SOD INJ 4 MG/ML VIAL ONE (07:36)
[2017-06-04] MEDS ORDERED: SUCCINYLCHOLINE CHLORIDE 20 MG/ML 10 ML VIAL IV ONE (07:36)
[2017-06-04] MEDS ORDERED: DiphenhydrAMINE HCL 50 MG/ML VIAL ONE ×2 (07:36→08:01)
[2017-06-04] MEDS ORDERED: TRANEXAMIC ACID INJ 1,000 MG in SYRINGE 0 ML IV ONE (08:00)
[2017-06-04] MEDS ORDERED: NEOSTIGMINE METHYLSULFATE 5 MG/5 ML SYR ONE (08:35)
[2017-06-04] MEDS ORDERED: GLYCOPYRROLATE INJ 0.2 MG/ML VIAL ONE (08:35)
[2017-06-04] MEDS ORDERED: PROPOFOL IV EMULSION 10 MG/ML 20 ML VIAL IV ONE ×2 (08:35→08:40)
--- NOTE | 2017-06-04 08:56 | [facility] Post Operative Brief Note ---
Immediate Operative Summary Operative Date Jun 04, 2017. Pre-Operative Diagnosis Left Hip Advanced Degenerative Joint Disease Post-Operative Diagnosis Left Hip Advanced Degenerative Joint Disease Procedure(s) Performed Left Total Hip Arthroplasty--Uncemented Surgeon Dr. Wall Beef Specialist Surgeon(s) JOZEF Maguire Estimated Blood Loss 500 ml Findings Consistent with Post-Op Diagnosis Fluids (cc crystalloids) 1400 cc Specimens A. Left Femoral Head Drains None Anesthesia Type General Complication(s) none Disposition Accompanied Pt To Recover: yes Disposition: Recovery Room / PACU
[2017-06-04] MEDS ORDERED: ZOLPIDEM TARTRATE 5 MG TAB PO PRN (09:00)
[2017-06-04] MEDS ORDERED: TAMSULOSIN HCL 0.4 MG CAP PO PRN (09:00)
[2017-06-04] MEDS ORDERED: DiphenhydrAMINE HCL 50 MG/ML VIAL IV PRN (09:00)
[2017-06-04] MEDS ORDERED: BISACODYL 10 MG SUPP PR PRN (09:00)
[2017-06-04] MEDS ORDERED: MAGNESIUM HYDROXIDE SUSP 30 ML UDC PO PRN (09:00)
[2017-06-04] MEDS ORDERED: METOCLOPRAMIDE HCL INJ 5 MG/ML 2 ML VIAL IV PRN (09:00)
[2017-06-04] MEDS ORDERED: MULTIVITAMIN TAB PO SCH (09:00)
[2017-06-04] MEDS ORDERED: ALUMINUM/MAGNESIUM/SIMETH (MAALOX MAX) 30 ML UDC PO PRN (09:00)
[2017-06-04] MEDS ORDERED: SILVER SULFADIAZINE 1% CR 50 GM JAR EXT PRN (09:00)
[2017-06-04] MEDS ORDERED: HYDROmorphone INJ 0.5 MG/0.5 ML SYR IV PRN (09:00)
[2017-06-04] MEDS ORDERED: ONDANSETRON INJ 2 MG/ML 2 ML VIAL IV PRN ×2 (09:00→09:30)
[2017-06-04] MEDS: FENTANYL CITRATE INJ 50 MCG/1 ML 2 ML VIAL IV PRN ×2 (09:27→09:33)
[2017-06-04] MEDS ORDERED: ATROPINE SULFATE 0.1 MG/ML 5ML SYR IV PRN (09:30)
[2017-06-04] MEDS ORDERED: EpHEDrine SULFATE INJ 50 MG/ML AMP IV PRN (09:30)
--- NOTE | 2017-06-04 09:33 | DIAGNOSTIC IMAGING REPORT ---
AP PELVIS, CROSSTABLE LATERAL LEFT HIP History: Left total hip arthroplasty. Degenerative arthritis. Postop. FINDINGS: The patient is status post a left total hip arthroplasty. The hardware is intact. No fracture or dislocation. Skin jessica are in place. Evidence for prior right total hip arthroplasty. IMPRESSION: Left total hip arthroplasty. No evidence for hardware complication. Electronically signed by: Eleazar Rodriguez M.D. 06/04/2017 9:31 AM Dictated Date/Time: 06/04/2017 9:30 AM
[2017-06-04] MEDS: HYDROmorphone INJ 0.5 MG/0.5 ML SYR IV PRN ×4 (09:41→10:10)
--- NOTE | 2017-06-04 09:44 | OPERATIVE REPORT ---
DATE OF OPERATION: 06/04/2017 SURGEON: Urban Wall MD DOMESTIC TECHNICIAN: JOZEF Brown PREOPERATIVE DIAGNOSIS: Left hip degenerative joint disease. POSTOPERATIVE DIAGNOSIS: Same. PROCEDURE PERFORMED: Left ceramic on highly cross-linked polyethylene total hip arthroplasty. COMPLICATIONS: None. ESTIMATED BLOOD LOSS: 500 mL. FLUID REPLACEMENT: 1400 mL crystalloid fluid replacement. ANESTHESIA: General. SPECIMENS: Left femoral head sent for pathology. OPERATIVE INDICATIONS: The patient is a 61-year-old gentleman who has had a several year history of bilateral hip pain and discomfort. He had undergone a right total hip replacement just back in February and has done extremely well from this. He continues to be limited by his left hip pain. He failed conservative treatment. X-rays reveal advanced left hip DJD. He elected to proceed with total hip arthroplasty. OPERATIVE FINDINGS: Operative findings revealed advanced left hip DJD. Grade 4 [id number] disease of the femoral head and acetabulum. He had large anterior osteophytes off the acetabulum as well as a central osteophyte. Moderate size joint effusion. Moderate synovitis. OPERATIVE IMPLANTS: Operative implants consisted of: 1. Biomet size 56-mm acetabular shell. 2. A 6.5 cancellous acetabular screws, one at 35 mm length and one at 25 mm in length. 3. An apex hole eliminator. 4. Highly cross-linked polyethylene liner with a 56 mm outer diameter and 36 mm inner diameter with a abraham placed inferior and posterior. 5. A DePuy size 13.5 large stature AML high offset femoral stem. 6. A +5/36 mm ceramic articular ball. OPERATIVE PROCEDURE: The patient was taken to the operating room, identified and placed on the operating table in the supine position. All contact areas were appropriately padded. IV antibiotics were provided by anesthesia team. A general anesthetic was implemented by anesthesia team as the patient strongly refused a spinal. The patient was then placed in the right lateral decubitus position. An axillary roll was placed. Stulberg hip positioner was used for positioning. Left hip and leg were then prepped and draped in the usual sterile fashion. A posterolateral approach to the left hip was then performed through a curvilinear incision centered over the greater trochanter. Sharp dissection was carried through the subcutaneous tissues down to the level of the IT band and gluteal fascia. The IT band and gluteal fascia were then incised longitudinally in line with the skin incision. The underlying greater trochanteric bursa was excised. The piriformis and external rotators were tagged and taken off the posterior aspect of the hip joint capsule. Great care was taken throughout the procedure to protect the sciatic nerve at all times. A posterior capsulotomy was then performed leaving a large flap for later repair. Hip was internally rotated and dislocated. Femoral neck osteotomy cut was made with the final cut about 14 mm above the lesser trochanter. Femoral head was removed and sent for pathology. The femur was retracted anteriorly. Attention was then drawn to the acetabulum. The acetabular labrum was excised. The pulvinar fat was excised. The sequential reaming of the acetabulum was then performed beginning with a size 49, progressing up to 55. I did open the entrance to the acetabulum with a 56 as I had trouble putting the cup in initially. A 56-mm Biomet G7 acetabular shell was then placed in about 40 degrees of lateral opening and 20 degrees of anteversion. It was fixed with two 6.5 cancellous acetabular screws. A trial liner was placed. Large anterior osteophytes were removed. Attention was then drawn to the femur. The proximal femur was entered with a cookie cutter followed by canal finder and lateralizing reamer. Sequential reaming of the femur was then performed beginning with a size 10 and progressing up to a 13. We got excellent chatter at 13. I broached beginning with a size 10.5 small broach and progressing up to 13.5. We placed a 13.5 large stem. Calcar reamer was used to smoothen off the calcar. I then trialed the hip. With a +5 articular ball, the soft tissue tension was just a bit loose, so we did use the high offset stem. With the +5 articular ball, the hip was fully stable in full extension, external rotation, flexion to 90 degrees, and internal rotation to 50 degrees. I did decide to place a abraham inferior and posterior to maximize his stability in flexion. We elected to use these implants. Leg lengths appeared equal. All trial implants were removed. An apex hole eliminator was placed. Highly cross-linked polyethylene liner with a abraham placed inferior and posterior was placed. A 13.5 large stature high offset femoral stem was impacted in position. I did ream part way down the canal with the 13.5 reamer as it was extremely tight initially. A +5/36 mm ceramic articular ball was placed. Hip was located and once again found to be stable. Attention was then drawn toward closing. The wound was irrigated with copious amounts of pulsatile lavage solution. I injected locally with 60 mL of 0.5% Marcaine with epinephrine. The posterior capsule and external rotators were repaired through drill holes in the posterior trochanter with #2 Ti-Cron suture. The IT band and gluteal fascia were then closed with #1 PDS suture in running fashion. The subcutaneous tissues were then closed with 2 layers, the deep layer in #1 Vicryl suture and subcutaneous tissues with 2-0 Dexon suture in a buried interrupted fashion. The skin was closed with skin jessica. The leg was then cleaned and dried and a sterile dressing of Xeroform, 4 x 4's, ABD and foam tape was applied. The patient was then placed on the transport bed and brought out of general anesthesia and transferred to the recovery room in stable condition. The patient tolerated the procedure well with no complications. All needle and sponge counts were correct at the end of the operation. I attest to the content of the Intraoperative Record and any orders documented therein. Any exception s are noted below.
--- NOTE | 2017-06-04 10:14 | Anesthesiology Progress Note ---
Anesthesia Post Op Note Date & Time Jun 04, 2017 at 10:14 Vital Signs Pain Intensity: 6 Vital Signs Past 12 Hours Date Time Temp Pulse Resp B/P (MAP) Pulse Ox O2 Delivery O2 Flow Rate FiO2 06/04/17 10:05 70 12 122/84 (105) 97 Nasal Cannula 4 06/04/17 09:55 80 14 145/83 (96) 96 Nasal Cannula 4 06/04/17 09:45 78 14 143/83 (97) 98 Nasal Cannula 4 06/04/17 09:35 81 14 133/79 (99) 98 Nasal Cannula 4 06/04/17 09:25 81 15 159/89 (99) 100 Oxymask 10 06/04/17 09:15 86 17 137/89 99 Oxymask 10 06/04/17 09:05 36.6 89 175/91 97 Oxymask 10 06/04/17 05:53 36.7 65 20 173/87 97 Room Air Notes Mental Status: alert / awake / arousable, participated in evaluation Pt Amnestic to Procedure: Yes Nausea / Vomiting: adequately controlled Pain: adequately controlled Airway Patency, RR, SpO2: stable & adequate BP & HR: stable & adequate Hydration State: stable & adequate Anesthetic Complications: no major complications apparent
[2017-06-04] MEDS: PANTOprazole SOD 40 MG TAB PO SCH (11:58)
[2017-06-04] MEDS: TAPENTADOL ER 50 MG TABCR PO SCH ×2 (11:58→20:43)
[2017-06-04] MEDS: CHECK SCOPOLAMINE PATCH PLACEMENT SCH ×2 (11:59→15:29)
[2017-06-04] MEDS: OXYCODONE HCL IR 5 MG TAB (IMMEDIATE RELEASE) PO PRN ×2 (12:10→17:10)
[2017-06-04] MEDS: D5W AND 1/2NSS + 20MEQ KCL 1,000 ML IV SCH ×3 (12:44→22:17)
[2017-06-04] MEDS: NICOTINE 14 MG/24 HR TDSY TD SCH (13:00)
[2017-06-04] MEDS: FERROUS GLUCONATE 324 MG TAB PO SCH ×2 (13:16→17:53)
[2017-06-04] MEDS: ACETAMINOPHEN 500 MG TAB PO SCH ×2 (14:24→22:17)
[2017-06-04] MEDS: KETOROLAC TROMETHAMINE 30 MG/ML VIAL IV. SCH ×2 (14:24→20:43)
[2017-06-04] MEDS ORDERED: RXC5 PO (15:30)
[2017-06-04] MEDS ORDERED: ACET-24 PO (15:30)
[2017-06-04] MEDS ORDERED: WARFARIN SOD 6 MG TAB PO ONE (16:00)
[2017-06-04] MEDS ORDERED: TRANEXAMIC ACID INJ 1,000 MG in SODIUM CHLORIDE 0.9% 100ML 100 ML IV ONE (17:00)
--- NOTE | 2017-06-04 17:39 | PROGRESS NOTE ---
DATE: 06/04/2017 SUBJECTIVE: A 61-year-old gentleman postop from left hip replacement. He is doing well. I had to wake him this afternoon when I went in his room. He denies any pain. No chest pain or shortness of breath. Not feeling dizzy or lightheaded. OBJECTIVE: VITAL SIGNS: Temperature is 36.7. Vital signs stable. PHYSICAL EXAMINATION: GENERAL: Reveals a pleasant middle-aged male. I had to wake him on going into the room this afternoon. LUNGS: Clear to auscultation. HEART: Regular rate and rhythm. ABDOMEN: Soft, nontender, nondistended. EXTREMITIES: Grossly neurovascularly intact except as follows: Examination of the left hip and leg reveals the dressing to be clean, dry and intact. Leg lengths are equal. Hip is located. His thigh is soft and supple. He can dorsiflex and plantarflex his foot appropriately. He is neurologically intact. X-RAYS: X-rays of the left hip from today reviewed in recovery room, shows left uncemented total hip arthroplasty, components to be in good position. No signs of problems. ASSESSMENT: A 61-year-old gentleman postop from left hip replacement, doing well. His pain is controlled. His hip is located. He is neurologically intact. PLAN: 1. DVT prophylaxis including thigh-high TEDs, SCDs, and aspirin twice a day. 2. PT/OT. Weight bear as tolerated. Left total hip protocol. 3. Pain control. Doing well with current pain regimen. 4. IV antibiotics x24 hours. 5. Smoking history. He has got nicotine patch on and will use that in the hospital. 6. Disposition: Plan to discharge to home with home health once medically stable and recovered.
[2017-06-04] MEDS: CEFAZOLIN IV 2,000 MG in SYRINGE 0 ML IV SCH (17:53)
[2017-06-04] MEDS: DOCUSATE SODIUM 100 MG CAP PO SCH (20:43)
[2017-06-04] MEDS ORDERED: SENNA 8.6 MG TAB PO SCH (21:00)
--- NOTE | 2017-06-04 21:04 | Discharge Instructions ---
Discharge Instructions Date of Service Jun 04, 2017. Admission Reason for Admission: Left Hip Degenerative Joint Disease Discharge Discharge Diagnosis / Problem: Left Hip Replacement Discharge Goals Goal(s): Decrease discomfort, Improve function, Increase independence, Improve disease control, Therapeutic intervention Activity Recommendations Activity Limitations: per Instructions/Follow-up section (Total Hip Precautions ) Weightbearing Status: Left weightbearing . Instructions / Follow-Up Instructions / Follow-Up ACTIVITY RECOMMENDATIONS: Physical Therapy: * Aggressive physical therapy is not usually needed. You will learn to take care of yourself safely and walk. * Follow the "Hip Precautions Instructions." * In some cases, the social work msw at the hospital will arrange to have a therapist come to your house for the first couple of weeks to help you learn these skills. * You need to practice on your own or with the help of a family member as needed. * When you learn these skills, most of the therapy can be done on your own. Home Exercise: * You were shown a series of exercises in the hospital. Do these exercises three to four times each day including the exercises you were shown in physical therapy. Walking: * Get up and walk several times each day. For the first four weeks, try not to stand or walk for more than one hour at a time. If you do stand or walk for more than one hour, you will not hurt anything, but your leg will likely swell. * As you feel comfortable, you may change from the walker or crutches to a cane and then to independent walking. MEDICATIONS: New Medicine: * You will likely be taking one or more of these medicines: 1. Oxycodone - Take, as directed, when you need it, every four to six hours to control your pain. 2. Aspirin - Thins your blood to lessen the chance of forming a blood clot. The dose of this is different for each person and is based on your blood tests that are done every Thursday and . * The most common side effects of pain medicine and iron are nausea and constipation. If nausea or constipation is too much of a problem or if you have any questions about your new medicines or doses, call [facility] at . We will try to help you manage these issues. VERY IMPORTANT TO READ AND REVIEW" Pain: * The immediate post-operative period after hip replacement surgery is often quite painful. * You are given a prescription for pain medicine. You should take it, as directed, when you need it, especially before physical therapy and before going to bed. Pain that interferes with sleep is very common and can last several months. * You will likely need pain medicine for the first two to four weeks. It will not stop all of the pain. The pain will lessen and as you feel better, you may change to milder pain medicine such as Tylenol. * The most common side effects of pain medicine are nausea and constipation, so don't take more than you need. SPECIAL CARE INSTRUCTIONS: TEDs/Elastic Stockings: * The white elastic stockings help limit swelling and prevent blood clots from forming in your legs. The more you wear them, the more they work. * Wear them for six weeks. Prevention of Infection: * Take antibiotics one hour before any dental cleaning, dental work, urological procedure, gastrointestinal procedure or any invasive surgery in order to prevent your new joint from getting infected. * You may get the antibiotics from the doctor performing the procedure or you may call our office at before and we will call in a prescription to the pharmacy of your choice. Things to Watch For: * Drainage from the incision site that occurs more than one week after your surgery. * Severely increased leg pain or swelling. * Increased redness at the incision site. * Fever above 102 degrees Fahrenheit. * Unusual chest pain or shortness of breath. * Unusual pain or burning with urination. Call [facility] at with any of the above problems or if you have any questions about your medicines or recovery. FOLLOW UP VISIT: Make an appointment to see your doctor for approximately two weeks after surgery for a progress check and staple removal by calling the office at . Current Hospital Diet Patient's current hospital diet: Regular Diet Discharge Diet Recommended Diet: Regular Diet Procedures Procedures Performed: Left Total Hip Arthroplasty--Uncemented Pending Studies Studies pending at discharge: no Medical Emergencies . Who to Call and When: Medical Emergencies: If at any time you feel your situation is an emergency, please call [phone] immediately. . Non-Emergent Contact Non-Emergency issues call your: Surgeon . "Provider Documentation" section prepared by Urban Wall. . VTE Core Measure Inpt VTE Proph given/why not?: Warfarin (Coumadin), Francesca Anguiano, SCD's
[2017-06-05] MEDS: KETOROLAC TROMETHAMINE 30 MG/ML VIAL IV. SCH ×2 (01:27→08:51)
[2017-06-05] MEDS: CEFAZOLIN IV 2,000 MG in SYRINGE 0 ML IV SCH (01:27)
[2017-06-05] MEDS: D5W AND 1/2NSS + 20MEQ KCL 1,000 ML IV SCH ×2 (03:08→08:06)
[2017-06-05 03:49] VITALS: BP 133/83; PULSE 54; TEMP 36.5; O2SAT 97
[2017-06-05] MEDS: ACETAMINOPHEN 500 MG TAB PO SCH (05:53)
[2017-06-05 07:23] VITALS: BP 117/75; PULSE 61; TEMP 36.9; O2SAT 98
[2017-06-05 07:24] VITALS: BP 117/75; PULSE 61; TEMP 36.8; O2SAT 98
--- NOTE | 2017-06-05 07:27 | PROGRESS NOTE ---
DATE: 06/05/2017 SUBJECTIVE: A 61-year-old gentleman postop day 1 from a left hip replacement. He is doing well. He says he is doing well with just the Tylenol. Pain is controlled. No chest pain or shortness of breath. Not feeling dizzy or lightheaded. OBJECTIVE: VITAL SIGNS: Temperature 36.5. Vital signs stable. GENERAL: Reveals a healthy, pleasant, middle-aged male. He is sitting up in bed, looks pretty comfortable. LUNGS: Clear to auscultation. HEART: Has a regular rate and rhythm. ABDOMEN: Soft, nontender, nondistended. EXTREMITIES: Grossly neurovascularly intact except as follows: Examination of the left hip and leg reveals the dressing to be clean, dry and intact. The thigh is soft and supple. His hip is located. He is neurologically intact. LABORATORY DATA: Pending. ASSESSMENT: A 61-year-old gentleman with history of deep venous thrombosis in the past, on chronic Coumadin therapy postop day 1 from left total hip replacement, doing well. His pain is controlled. He is going to go home today. PLAN: 1. DVT prophylaxis including thigh-high TEDs, SCDs, and back on Coumadin. We will give him 15 mg today and then back to his regular dose tomorrow. 2. PT/OT. Weight bear as tolerated. Left total hip protocol. 3. Pain control. Doing well with current pain regimen. 4. Disposition: Plan to discharge to home if he does okay on therapy today.
[2017-06-05 07:37] LABS: BASO % 0.2 %; BASO ABS # 0.02 K/uL (0-0.2); EOS % 0.4 %; EOS ABS # 0.04 K/uL (0-0.5); HEMATOCRIT 36.9 % (42-52); HEMOGLOBIN 12.2 g/dL (14.0-18.0); IG# 0.03 K/uL (0.00-0.02); LYMPH % 15.3 %; LYMPH ABS # 1.41 K/uL (1.2-3.4); MEAN CELL VOLUME 92.9 fL (80-100); MEAN CORPUSCULAR HEMOGLOBIN 30.7 pg (25-34); MEAN CORPUSCULAR HGB CONC 33.1 g/dl (32-36); MEAN PLATELET VOLUME 10.3 fL (7.4-10.4); MONO % 11.7 %; MONO ABS # 1.08 K/uL (0.11-0.59); NEUT % 72.1 %; NEUT ABS # 6.64 K/uL (1.4-6.5); PLATELET COUNT 133 K/uL (130-400); RED CELL DISTRIBUTION WIDTH CV 13.4 % (11.5-14.5); RED CELL DISTRIBUTION WIDTH SD 45.5 fL (36.4-46.3); WHITE BLOOD COUNT 9.22 K/uL (4.8-10.8)
[2017-06-05 07:42] LABS: INR 1.1 (0.9-1.1)
[2017-06-05 08:12] LABS: CALCIUM 8.7 mg/dl (8.5-10.1); CREATININE 0.95 mg/dl (0.60-1.40); POTASSIUM 4.2 mmol/L (3.5-5.1)
[2017-06-05] MEDS: PANTOprazole SOD 40 MG TAB PO SCH (08:53)
[2017-06-05] MEDS: DOCUSATE SODIUM 100 MG CAP PO SCH (08:53)
[2017-06-05] MEDS: FERROUS GLUCONATE 324 MG TAB PO SCH (08:53)
[2017-06-05] MEDS: NICOTINE 14 MG/24 HR TDSY TD SCH (08:54)
[2017-06-05] MEDS: TAPENTADOL ER 50 MG TABCR PO SCH (08:59)
[2017-06-05] MEDS ORDERED: MULTIVITAMIN TAB PO SCH (09:00)
--- NOTE | 2017-06-05 09:53 | Anesthesiology Progress Note ---
Anesthesia Post Op Note Date & Time Jun 05, 2017 at 09:53 Vital Signs Vital Signs Past 12 Hours Date Time Temp Pulse Resp B/P (MAP) Pulse Ox O2 Delivery O2 Flow Rate FiO2 06/05/17 08:11 Room Air 06/05/17 07:24 36.8 61 19 117/75 (89) 98 Room Air 06/05/17 07:23 36.9 61 18 117/75 (89) 98 Room Air 06/05/17 03:49 36.5 54 18 133/83 (100) 97 CPAP 06/04/17 23:59 CPAP 06/04/17 23:38 36.9 63 16 105/68 (80) 96 Room Air Notes Mental Status: alert / awake / arousable, participated in evaluation Pt Amnestic to Procedure: Yes Nausea / Vomiting: adequately controlled Pain: adequately controlled Airway Patency, RR, SpO2: stable & adequate BP & HR: stable & adequate Hydration State: stable & adequate Anesthetic Complications: no major complications apparent
[2017-06-05 11:06] VITALS: BP 117/75; PULSE 61; TEMP 36.8; O2SAT 98
[2017-06-05] MEDS ORDERED: WARFARIN SOD 7.5 MG TAB PO ONE (16:00)
--- NOTE | 2017-06-08 18:51 | DISCHARGE SUMMARY ---
ADMITTING PHYSICIAN AND SURGEON: Dr. Wall. ADMITTING DIAGNOSIS: Left hip degenerative joint disease. SURGERY PERFORMED: Left total hip arthroplasty. SECONDARY DIAGNOSES: Deep venous thrombosis and history of smoking. CONSULTS: None obtained. HISTORY AND PHYSICAL EXAMINATION: Well documented in the patient's chart. HOSPITAL COURSE: The patient was admitted on 06/04/2017, underwent total hip arthroplasty, tolerated the procedure well and there were no complications. He was transferred to the PACU postoperatively and later to the orthopedic floor for further care. He was given Ancef for antibiotic prophylaxis; DIEUDONNE stockings, SCDs and Coumadin for DVT prophylaxis. Hemoglobin, hematocrit and vital signs were monitored throughout his hospital stay and remained stable. He did not require any blood transfusions. There were no complications. By postoperative day #1, he was tolerating a regular diet, pain was controlled with oral pain medicine and he was participating in physical therapy. On postop day #1, he was discharged home and set up with home health services. He was given printed discharge instructions including new prescriptions for extra strength Tylenol and oxycodone. Continue his home medications with the exception of his home dose of Tylenol and Dickinson, which were stopped. Continue physical therapy, weightbearing as tolerated, DIEUDONNE stockings and Coumadin for DVT prophylaxis, total hip precautions and follow up in 10-12 days or sooner if there are problems or concerns.
== END 2017-06-05 13:10 | disposition home health service (06) | DRG 470 ==
LOC: C.ACU 05:23 → C.MSN 06:40 → ENRESERV 10:32
PROVIDERS: ADMIT Orthopaedic Surgery Sports Medicine; ATTEND Orthopaedic Surgery Sports Medicine
PROC: 0SRB0JA Replacement of Left Hip Joint with Synthetic Substitute, Uncemented, Open Approach (ICD-10-PCS; principal; 2017-06-04 07:15)
DX: M16.12 Unilateral primary osteoarthritis, left hip (principal); Z86.718 Personal history of other venous thrombosis and embolism; Z96.641 Presence of right artificial hip joint; Z87.891 Personal history of nicotine dependence